=== PATIENT | female | born 1990 | race Caucasian/White ===

== ENCOUNTER 2025-03-07 22:57 | Emergency (ER) | payer BC ==
[2025-03-07 23:31] LABS: #Basophils 0.03 10x3/uL (0.0-0.2); #Eosinophils 0.14 10x3/uL (0.0-0.7); #Monocytes 0.68 10x3/uL (0.11-0.59); #Neutrophils 4.40 10x3/uL (1.40-6.50); %Basophils 0.4 % (0.0-1.0); %Eosinophils 1.9 % (0.0-10.0); %Lymphocytes 29.1 % (21.0-51.0); %Monocytes 9.2 % (0.0-10.0); %Neutrophils 59.1 % (42.0-75.0); Hematocrit 40.6 % (36.0-47.0); Hemoglobin 14.0 g/dL (12.0-16.0); Mean Corpuscular Hemoglobin 31.0 pg (27.0-31.0); Mean Corpuscular Volume 90.0 fL (78.0-98.0); Platelet Count 292 10x3/uL (130-400); Red Blood Cell (RBC) Count 4.51 mill/uL (4.20-5.40); White Blood Cell (WBC) Count 7.43 10x3/uL (4.8-10.8)
[2025-03-07 23:43] LABS: BHCG - Serum Negative (NEGATIVE); Pregs Control Background? CLEAR/WHITE (CLR/WHITE); Pregs Control Bar Appear? YES (CONTROL BAR)
[2025-03-07 23:47] LABS: ALT (SGPT) 18 U/L (Less than 34); AST (SGOT) 20 U/L (11-34); Albumin 4.5 g/dL (3.1-4.5); Alkaline Phosphatase 70 U/L (40-110); Anion Gap 15 mmol/L (10-20); BUN (Urea Nitrogen) 13 mg/dL (7.0-18.7); Bilirubin, Total 0.4 mg/dL (0.3-1.2); Calc. Creatinine Clearance 0 mL/min (70-130); Calcium 9.4 mg/dL (7.8-10.44); Carbon Dioxide 21 mmol/L (22-29); Chloride 103 mmol/L (98-107); Globulin 3.1 g/dL (2.4-3.5); Glucose 97 mg/dL (70-105); Lipase 17 U/L (8-78); Potassium 3.7 mmol/L (3.5-5.1); Sodium 135 mmol/L (136-145)
[2025-03-07 23:52] LABS: Troponin I Less than 0.010 ng/mL (< 0.028)
[2025-03-08 02:12] LABS: Troponin I Less than 0.010 ng/mL (< 0.028)
== END 2025-03-08 02:34 | disposition home or self-care (01) ==
LOC: ERS 22:57
DX: R10.13 Epigastric pain (principal); F90.9 Attention-deficit hyperactivity disorder, unspecified type
CPT/HCPCS: 36415; 71045; 80053; 83690; 84484; 84703; 85025; 93005